=== PATIENT | female | born 1945 | race Caucasian/White ===

== ENCOUNTER 2016-11-23 16:37 | Emergency (ER) | payer MEDICARE, OTHER ==
[2016-11-23 15:37] LABS: BASOPHIL% 0.3 % (0-2.5); EOSINOPHIL% 0.6 % (0.0-7.0); HEMATOCRIT 45.7 % (35.0-45.0); HEMOGLOBIN 15.1 gm/dL (12.0-16.0); LYMPHOCYTE# 1.5 X10e3 (1.0-3.5); MEAN CORPUSCULAR HEMOGLOBIN 31.3 PG (28-34); MEAN PLATELET VOLUME 7.8 FL (6.5-11.5); MONOCYTE# 0.6 X10e3 (0-1.0); MONOCYTE% 7.9 % (3.0-12.0); NEUTROPHIL# 5.7 X10e3 (1.5-7.1); NEUTROPHIL% 72.2 % (40-75); PLATELET COUNT 210 X10e3 (140-420); RED BLOOD COUNT 4.82 X10e (3.90-5.30); WHITE BLOOD COUNT 7.8 X10e3 (4.0-10.5)
[2016-11-23 15:39] LABS: DIFF IND NO
[2016-11-23 16:12] LABS: CREATININE SERUM 0.5 mg/dL (0.6-1.4); GLOM FILT RATE Estimated 98.1 mL/min (>60)
[2016-11-23 16:29] LABS: URINE SOURCE CLEAN CATCH
[2016-11-23 16:34] LABS: URINE APPEARANCE CLEAR; URINE BILIRUBIN NEG (NEG); URINE BLOOD NEG (NEG); URINE COLOR YELLOW; URINE GLUCOSE NEG (NEG); URINE KETONE NEG (NEG); URINE LEUKOCYTE ESTERASE TRACE (NEG); URINE NITRATE NEG (NEG); URINE PH 6.5 (5-8); URINE PROTEIN NEG (NEG); URINE SPECIFIC GRAVITY 1.017 (1.003-1.035); URINE UROBILINOGEN 0.2 MG/DL (NEG)
[2016-11-23 16:36] LABS: URBCS1 AUWI 0-2 /[HPF] (0-2); URINE BACTERIA AUWI NEG (NEGATIVE); URINE SQUAMOUS EPITHELIAL CELL NONE SEEN /[HPF]
[~2016-11-23 16:37] MED LIST: ALLERCLEAR10 MG GT; CALCIUM CITRATE+D; CALCIUM CITRATE1 T15 GT; CENTRUM GT; CITRACAL200 MG; CLONAZEPAM0.5 MG GT; DIAZEPAM5 MG/5 M1 RC; DULCOLAX10 MG/SUPP RC; GENTLE LAXATIVE10 MG RC; GOLYTELY SOLU4000 ML PO; KEPPRA; KEPPRA500 M1 DOB; KEPPRA750 M1 GT; KLONOPIN GT; LACTULOSE10 G/15 M1 PO; LACTULOSE10 G/15 M2 GT; LACTULOSE10 G/15 ML PEG; LAMICTAL PEG; LAMICTAL PO; LAMICTAL150 MG GT; LAMICTAL25 M1 DOB; METHENAMINE HIPP1 GM PO; MIACALCIN4 ML; MILK OF MAGNESIA GT; MIRALAX255 GM PEG; MIRALAX255 GM PO; MULTI-VITAMIN W1 TA1 PO; MYLICON40 MG/0.1; MYLICON40 MG/0.6 GT; OMEPRAZOLE20 M2 PO; PREMARIN0.625 MG PO; PRILOSEC20 M1 GT; PROBIOTIC1 EACH PO; SENNA CONCENTR8.6 MG GT; SENNA8.8 MG/5 M PO; TOPAMAX; TOPAMAX25 MG DOB; TOPIRAMATE200 M1 GT; TYLENOL325 M1 GT; VIMPAT200 MG DOB; VIMPAT200 MG GT; VITAMIN D 4001 UDTAB GT; VITAMIN D1000 UNI1 GT; VITAMIN D1000 UNIT PO; ZANTAC GT; [UNRECOGNIZED DRUG - REMARK]
[2016-11-23 16:38] LABS: CULTURE INDICATED? NO
[2017-03-11] MEDS ORDERED: DANTRIUM25 MG FT (18:05)
[2017-03-11] MEDS ORDERED: HEARTBURN150 MG GT (18:08)
[2017-03-11] MEDS ORDERED: METOPROLOL TAR25 MG GT (18:08)
[2017-03-11] MEDS ORDERED: RISA-BID CAPLE1 EAC1 GT (18:09)
[2017-03-11] MEDS ORDERED: VIMPAT200 MG GT (18:10)
[2017-03-11] MEDS ORDERED: ARTIFICIAL TEAR15 M9 OU (18:11)
[2017-03-11] MEDS ORDERED: SALINE NOSE SPR45 M1 (18:11)
[2017-03-11] MEDS ORDERED: FLONASE SENSIM9.9 ML (18:13)
== END 2016-11-23 19:29 ==
LOC: CED 16:37
PROVIDERS: Emergency Medicine
DX: G40.909 Epilepsy, unspecified, not intractable, without status epilepticus (principal); Z79.899 Other long term (current) drug therapy; Z88.1 Allergy status to other antibiotic agents; Z88.8 Allergy status to other drugs, medicaments and biological substances
CPT/HCPCS: 80048; 81003; 82947; 85025; 99284

== ENCOUNTER 2017-01-17 12:36 | Emergency (ER) | payer MEDICARE, OTHER ==
--- NOTE | ~2017-01-17 | EKG ---
PATIENT: ESTELLA BROWN UNIT #: [id number] Ventricular Rate: 64 BPM Atrial Rate: 64 BPM P-R Interval: 190 ms QRS Duration: 76 ms Q-T Interval: 414 ms QTC Calculation(Bezet): 427 ms P [place]: 76 degrees Calculated R [place]: 58 degrees Calculated T [place]: 46 degrees Diagnosis Line: Normal sinus rhythm Diagnosis Line: Normal ECG Diagnosis Line: When compared with ECG of 16-DEC-2015 20:49, Diagnosis Line: No significant change was found Diagnosis Line: Confirmed by ANIBAL LOZANO MD ([id number]) on Diagnosis Line: 01/17/2017 7:16:44 PM INTERPRETING MD: SETH
--- NOTE | ~2017-01-17 | CR72 ---
[facility] A Service of [facility] & [facility] RADIOLOGY TEXT RESULTS PATIENT: ESTELLA BROWN LOCATION: [facility] : 47 UNIT #: [id number] AGE: [address]: Giovanni Casas MD SEX: F ORDER DR: [id number] [facility] [address] [place], [place] [address] [id number] MR#: [id number] Acc #: [id number] NAME: ESTELLA BROWN : 1945 SEX: F STUDY DATE/TIME: 01/17/2017 13:16 UNIT: JANELLE ROOM: STUDY DESCRIPTION: CR Chest Single View Portable Ordering Physician: [facility] Primary Care Physician: Erick Ayala Sr., M.D. MEDICAL IMAGING REPORT This report is preliminary unless electronic signature is present EXAM Portable chest HISTORY Shortness of air today. FINDINGS The cardiac size and pulmonary vascularity are within normal limits allowing for shallow inspiration. No airspace infiltrates or effusions are identified. Mild right lower thoracic curve. Mild gaseous distension of the partly visualized colon in the upper abdomen could be due to mild ileus. IMPRESSION No acute findings in the chest. Low lung volumes. Dictated by... Buddy Barker M.D. THIS IS AN ELECTRONICALLY VERIFIED REPORT Buddy Barker M.D. at 01/17/2017 10:13 PM DFL/pcl TD: 01/17/2017 16:25 JOB #: [id number] MEDICAL IMAGING REPORT Page 1 of 1 COPY
[2017-01-17 13:41] LABS: URINE SOURCE CLEAN CATCH
[2017-01-17 13:51] LABS: URINE APPEARANCE CLEAR; URINE BILIRUBIN NEG (NEG); URINE BLOOD NEG (NEG); URINE COLOR DK YELLOW; URINE GLUCOSE NEG (NEG); URINE KETONE NEG (NEG); URINE LEUKOCYTE ESTERASE TRACE (NEG); URINE NITRATE NEG (NEG); URINE PROTEIN NEG (NEG); URINE UROBILINOGEN 0.2 MG/DL (NEG)
[2017-01-17 13:51] LABS: BASOPHIL% 0.1 % (0-2.5); EOSINOPHIL# 0.1 X10e3 (0-0.7); EOSINOPHIL% 0.6 % (0.0-7.0); HEMATOCRIT 38.7 % (35.0-45.0); HEMOGLOBIN 12.6 gm/dL (12.0-16.0); LYMPHOCYTE# 0.8 X10e3 (1.0-3.5); LYMPHOCYTE% 7.9 % (17.0-45.0); MEAN CELL VOLUME 95.2 FL (83-96); MEAN CORPUSCULAR HGB CONC 32.5 g/dL (30-36); MEAN PLATELET VOLUME 7.5 FL (6.5-11.5); MONOCYTE# 0.6 X10e3 (0-1.0); MONOCYTE% 6.2 % (3.0-12.0); NEUTROPHIL# 8.4 X10e3 (1.5-7.1); NEUTROPHIL% 85.2 % (40-75); PLATELET COUNT 217 X10e3 (140-420); RED BLOOD COUNT 4.07 X10e (3.90-5.30); WHITE BLOOD COUNT 9.9 X10e3 (4.0-10.5)
[2017-01-17 13:52] LABS: POC - CKMB 2.9 ng/mL (0.0-7.9); POC - TROPONIN <0.05 ng/mL (<=0.05)
[2017-01-17 13:55] LABS: CULTURE INDICATED? YES; URBCS1 AUWI 0-2 /[HPF] (0-2); URINE BACTERIA AUWI 2+ (NEGATIVE); URINE SQUAMOUS EPITHELIAL CELL NONE SEEN /[HPF]
[2017-01-17 14:05] LABS: DIFF IND NO
[2017-01-17 14:18] LABS: BUN/CREATININE RATIO 46.66; CALCIUM SERUM 8.4 mg/dL (8.4-10.2); CREATININE SERUM 0.3 mg/dL (0.6-1.4); GLOM FILT RATE Estimated 116.1 mL/min (>60); POTASSIUM 3.3 mmol/L (3.5-5.1)
[2017-03-11] MEDS ORDERED: DANTRIUM25 MG FT (18:05)
[2017-03-11] MEDS ORDERED: HEARTBURN150 MG GT (18:08)
[2017-03-11] MEDS ORDERED: METOPROLOL TAR25 MG GT (18:08)
[2017-03-11] MEDS ORDERED: RISA-BID CAPLE1 EAC1 GT (18:09)
[2017-03-11] MEDS ORDERED: VIMPAT200 MG GT (18:10)
[2017-03-11] MEDS ORDERED: ARTIFICIAL TEAR15 M9 OU (18:11)
[2017-03-11] MEDS ORDERED: SALINE NOSE SPR45 M1 (18:11)
[2017-03-11] MEDS ORDERED: FLONASE SENSIM9.9 ML (18:13)
== END 2017-01-17 19:10 | disposition home or self-care (01) ==
LOC: CED 12:36
PROVIDERS: Emergency Medicine
DX: R06.02 Shortness of breath (principal); G40.909 Epilepsy, unspecified, not intractable, without status epilepticus; Z90.49 Acquired absence of other specified parts of digestive tract; Z88.1 Allergy status to other antibiotic agents; Z88.8 Allergy status to other drugs, medicaments and biological substances; Z79.899 Other long term (current) drug therapy
CPT/HCPCS: 36415; 71010; 80048; 81003; 82553; 83880; 84484; 85025; 87040; 87086; 93005; 99285

== ENCOUNTER → 2017-02-09 | Outpatient (CLI) | payer MEDICARE, OTHER ==
[~2017-02-09] MED LIST changes: +ARTIFICIAL TEAR15 M9 OU; +DANTRIUM25 MG FT; +DELTASONE20 MG GT; +DIASTAT2.5 MG PR; +DULCOLAX10 MG PR; +EUCERIN CREME454 GM TOP; +FLONASE SENSIM9.9 ML; +HEARTBURN150 MG GT; +METOPROLOL TAR25 MG GT; +RISA-BID CAPLE1 EAC1 GT; +SALINE NOSE SPR45 M1
--- NOTE | ~2017-02-09 | US49 ---
[facility] A Service of [facility] & [facility] RADIOLOGY TEXT RESULTS PATIENT: ESTELLA BROWN LOCATION: [facility] : 46 UNIT #: [id number] AGE: [address]: Erick Ayala MD SEX: F ORDER DR: [id number] [facility] [address] [place], [place] [address] [id number] O MR#: [id number] Acc #: [id number] NAME: ESTELLA BROWN : 1945 SEX: F STUDY DATE/TIME: 02/09/2017 13:53 UNIT: [facility] ROOM: STUDY DESCRIPTION: US Extremity Non Vasc Complete Attending Physician: Erick Ayala Sr., M.D. Referring Physician: Erick Ayala Sr., M.D. Ordering Physician: Erick Ayala Sr., M.D. Primary Care Physician: Erick Ayala Sr., M.D. MEDICAL IMAGING REPORT This report is preliminary unless electronic signature is present EXAM Ultrasound examination of the right posterior knee HISTORY Large knot behind the right knee for the past month. TECHNIQUE Ultrasound evaluation was performed with bender-scale and color-flow imaging. FINDINGS The palpable abnormality represents a popliteal cyst that is unilocular. It measures 2.9 x 1.5 x 1.9 cm. It contains some internal echoes likely representing debris. No additional masses are seen. No vascular abnormalities are seen crossing the joint. IMPRESSION Posterior knee cyst as measured above. Dictated by... Devon Moreno M.D. THIS IS AN ELECTRONICALLY VERIFIED REPORT Devon Moreno M.D. at 02/10/2017 4:42 PM JACKLYN/gorge TD: 02/10/2017 13:11 JOB #: [id number] MEDICAL IMAGING REPORT Page 1 of 1 COPY
== END | disposition home or self-care (01) ==
LOC: CGUS 12:56
DX: M25.861 Other specified joint disorders, right knee (principal)
CPT/HCPCS: 76881

== ENCOUNTER 2017-03-08 00:37 | Emergency (ER) | payer MEDICARE, OTHER ==
[~2017-03-08] VITALS: Ht 152.4 cm; Wt 60.0 kg
--- NOTE | ~2017-03-08 | EKG ---
PATIENT: ESTELLA BROWN UNIT #: [id number] Ventricular Rate: 84 BPM Atrial Rate: 84 BPM P-R Interval: 174 ms QRS Duration: 74 ms Q-T Interval: 346 ms QTC Calculation(Bezet): 408 ms P [place]: 76 degrees Calculated R [place]: 63 degrees Calculated T [place]: 67 degrees Diagnosis Line: Normal sinus rhythm Diagnosis Line: Normal ECG Diagnosis Line: When compared with ECG of 17-JAN-2017 13:02, Diagnosis Line: No significant change was found Diagnosis Line: Confirmed by ESTELLE ELMORE MD ([id number]) on 03/09/2017 Diagnosis Line: 11:32:32 PM INTERPRETING MD: CATARINA MURILLO
--- NOTE | ~2017-03-08 | CR72 ---
[facility] A Service of [facility] RADIOLOGY TEXT RESULTS PATIENT: ESTELLA BROWN LOCATION: [facility] : 46 UNIT #: [id number] AGE: [address]: Giovanni Casas MD SEX: F ORDER DR: [id number] [facility] [address] [place], [place] [address] [id number] E MR#: [id number] Acc #: [id number] NAME: ESTELLA BROWN. : 1945 SEX: F STUDY DATE/TIME: 03/08/2017 1:46 UNIT: [facility] ROOM: STUDY DESCRIPTION: CR Chest Single View Portable Attending Physician: Giovanni Casas Ordering Physician: Naif Casas M.D. Primary Care Physician: Lianna Groves MEDICAL IMAGING REPORT This report is preliminary unless electronic signature is present EXAM Chest x-ray, HISTORY 71-year-old female in the ED with new onset shortness of air today. TECHNIQUE AP portable chest x-ray. FINDINGS Chronically low lung volumes with bibasilar atelectasis. Colon extends beneath the left hemidiaphragm. Gastrostomy tube. Lungs appear clear. No visible pulmonary infiltrate or pleural effusion. Heart size and pulmonary vascularity are within normal limits. No change since 01/17/2017. IMPRESSION No active disease. No change since 01/17/2017. Dictated by... Antony Bernal M.D. THIS IS AN ELECTRONICALLY VERIFIED REPORT Antony Bernal M.D. at 03/08/2017 6:08 AM PATRIICA/lucia TD: 03/08/2017 02:37 JOB #: [id number] MEDICAL IMAGING REPORT [facility] A Service of [facility] RADIOLOGY TEXT RESULTS PATIENT: ESTELLA BROWN LOCATION: [facility] : 47 UNIT #: [id number] AGE: [address]: Giovanni Casas MD SEX: F ORDER DR: Page 1 of 1 COPY
[~2017-03-08 00:37] MED LIST changes: -ARTIFICIAL TEAR15 M9 OU; -DANTRIUM25 MG FT; -DELTASONE20 MG GT; -DIASTAT2.5 MG PR; -DULCOLAX10 MG PR; -EUCERIN CREME454 GM TOP; -FLONASE SENSIM9.9 ML; -HEARTBURN150 MG GT; -METOPROLOL TAR25 MG GT; -RISA-BID CAPLE1 EAC1 GT; -SALINE NOSE SPR45 M1
[2017-03-08 03:36] LABS: BASOPHIL% 0.1 % (0-2.5); DIFF IND NO; EOSINOPHIL% 0.6 % (0.0-7.0); HEMOGLOBIN 13.6 gm/dL (12.0-16.0); LYMPHOCYTE# 0.9 X10e3 (1.0-3.5); LYMPHOCYTE% 13.4 % (17.0-45.0); MEAN CELL VOLUME 96.6 FL (83-96); MEAN CORPUSCULAR HEMOGLOBIN 32.8 PG (28-34); MEAN CORPUSCULAR HGB CONC 33.9 g/dL (30-36); MEAN PLATELET VOLUME 7.3 FL (6.5-11.5); MONOCYTE# 0.5 X10e3 (0-1.0); MONOCYTE% 7.4 % (3.0-12.0); NEUTROPHIL# 5.3 X10e3 (1.5-7.1); NEUTROPHIL% 78.5 % (40-75); PLATELET COUNT 186 X10e3 (140-420); RED BLOOD COUNT 4.14 X10e (3.90-5.30); WHITE BLOOD COUNT 6.7 X10e3 (4.0-10.5)
[2017-03-08 03:45] LABS: POC - CKMB 1.6 ng/mL (0.0-7.9); POC - TROPONIN <0.05 ng/mL (<=0.05)
[2017-03-08 03:54] LABS: ALBUMIN SERUM 3.9 g/dL (3.5-5.0); BILIRUBIN, DIRECT 0.1 mg/dL (0.0-0.2); BILIRUBIN,INDIRECT 0.2 mg/dL (0.0-0.9); BILIRUBIN,TOTAL 0.3 mg/dL (0.2-2.0); BUN/CREATININE RATIO 63.33; CALCIUM SERUM 10.6 mg/dL (8.4-10.2); CREATININE SERUM 0.3 mg/dL (0.6-1.4); GLOM FILT RATE Estimated 116.1 mL/min (>60); POTASSIUM 3.6 mmol/L (3.5-5.1); PROTEIN TOTAL SERUM 6.8 g/dL (6.0-8.3)
[2017-03-11] MEDS ORDERED: DANTRIUM25 MG FT (18:05)
[2017-03-11] MEDS ORDERED: METOPROLOL TAR25 MG GT (18:08)
[2017-03-11] MEDS ORDERED: HEARTBURN150 MG GT (18:08)
[2017-03-11] MEDS ORDERED: RISA-BID CAPLE1 EAC1 GT (18:09)
[2017-03-11] MEDS ORDERED: VIMPAT200 MG GT (18:10)
[2017-03-11] MEDS ORDERED: ARTIFICIAL TEAR15 M9 OU (18:11)
[2017-03-11] MEDS ORDERED: SALINE NOSE SPR45 M1 (18:11)
[2017-03-11] MEDS ORDERED: FLONASE SENSIM9.9 ML (18:13)
== END 2017-03-08 04:55 | disposition home or self-care (01) ==
LOC: CED 00:37
PROVIDERS: Emergency Medicine
DX: R06.02 Shortness of breath (principal); G40.909 Epilepsy, unspecified, not intractable, without status epilepticus; K21.9 Gastro-esophageal reflux disease without esophagitis
CPT/HCPCS: 36415; 71010; 80048; 80076; 82553; 83880; 84484; 85025; 93005; 99284

== ENCOUNTER 2017-03-12 03:30 | Inpatient (IN) | payer MEDICARE, OTHER ==
[~2017-03-12] VITALS: Ht 152.4 cm; Wt 60.5 kg
--- NOTE | ~2017-03-12 | CR72 ---
[facility] A Service of [facility] & [facility] RADIOLOGY TEXT RESULTS PATIENT: ESTELLA BROWN LOCATION: [address] : [birth year] UNIT #: [id number] AGE: [address]: Jessie Farnsworth MD SEX: F ORDER DR: [id number] [facility] [address] [place], [place] [address] [id number] I MR#: [id number] Acc #: [id number] NAME: ESTELLA BROWN : 1945 SEX: F STUDY DATE/TIME: 03/12/2017 10:03 UNIT: [facility] ROOM: [facility] STUDY DESCRIPTION: CR Chest Single View Portable Attending Physician: Jessie Farnsworth M.D. Ordering Physician: Ed Doctor [id number] [facility] Primary Care Physician: Lianna Groves MEDICAL IMAGING REPORT This report is preliminary unless electronic signature is present EXAM Chest portable, 03/12/2017 10:03 hours HISTORY Shortness of air for 2 days. New line placement. COMPARISON 03/12/2017 04:30 hours FINDINGS Portable upright chest demonstrates the patient being rotated and leaning to the right. There is a new right IJ catheter with tip in the right atrium. If it is desired to have the tip in the SVC, I would suggest withdrawing the catheter 4.0 cm. The lung volumes are low with bibasilar atelectasis. There is increased density at the right lung base which could represent atelectasis, pneumonia and/or small effusions similar to the earlier film. IMPRESSION 1. Low lung volumes with bibasilar atelectasis. There is increased density laterally at the right base which could represent atelectasis, pneumonia and/or small pleural effusion. 2. Right IJ catheter tip is in the right atrium. If it is desired to have the tip in the SVC I would suggest withdrawing the catheter 4.0 cm. There is no pneumothorax. Dictated by... Mayte Todd M.D. THIS IS AN ELECTRONICALLY VERIFIED REPORT Mayte Todd M.D. at 03/13/2017 3:[address] [facility] A Service of [facility] & [facility] RADIOLOGY TEXT RESULTS PATIENT: ESTELLA BROWN [address] [birth year] UNIT #: [id number] AGE: [address]: Jessie Farnsworth MD SEX: F ORDER DR: TD: 03/12/2017 15:10 JOB #: [id number] MEDICAL IMAGING REPORT Page 1 of 1 COPY
--- NOTE | ~2017-03-12 | HP ---
Unit #: [id number] #: [id number] Patient: LADY BROWN [id number] [address] [address] [id number] I MR#: [id number] NAME: LADY BROWN ROOM: [facility] Age: 71 Sex: F Admission Date: 03/12/2017 : 1945 Attending Physician: Jessie Farnsworth M.D. Primary Care Physician: Lianna Groves HISTORY AND PHYSICAL CHIEF COMPLAINT Hypothermia and decreased saturation. HISTORY OF PRESENT ILLNESS Ms. Lady Brown is a 71-year-old female who is a resident of [facility]. She has a history of mental retardation, seizure disorder, dysphagia and was sent to [facility] emergency room because of hypothermia and also low saturations. The patient has been diagnosed with healthcare acquired pneumonia and acute respiratory failure. The patient is being admitted to the ICU room 9. The patient is not able to provide any history. Most of the history has been taken form the emergency room notes and from previous notes. PAST MEDICAL HISTORY 1. History of mental retardation. 2. History of seizure disorder. 3. Dysphagia, status post PEG placement. PAST SURGICAL HISTORY History of PEG placement. SOCIAL HISTORY The patient is a resident of [place]. FAMILY HISTORY Not known. ALLERGIES No known drug allergies. REVIEW OF SYSTEMS No obtainable at this time. PHYSICAL EXAMINATION GENERAL: The patient is being examined in the ICU, bed 9. VITALS: Blood pressure is 89/45, respiratory rate 27, pulse 64, temperature 93.6. HEENT: Head is normocephalic. The patient has BiPAP on at this time. CHEST: Decreased air entry bilaterally. Basal crackles are heard. HEART: Regular rhythm. ABDOMEN: Soft. EXTREMITIES: Trace edema. 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 Neurological examination has been very limited. Unit #: [id number] #: [id number] Patient: LADY BROWN DIAGNOSTIC STUDIES IMAGING: Chest x-ray done showed mild infiltrate right lung base. LABORATORY: White blood cell count 11.6, hemoglobin 13.0, hematocrit 39.3, platelets 232. Troponin less than 0.05. Lactic acid 0.9. Sodium 140, potassium 3.2, chloride 47, BUN 15, creatinine 0.5, BNP 235. ASSESSMENT The patient is being admitted to the ICU with 1. Sepsis. 2. Acute hypoxic/hypercarbic respiratory failure. 3. Healthcare facility acquired pneumonia. 4. Hypokalemia. 5. Seizure disorder. 6. Dysphagia with a history of PEG in place. PLAN Admit to the ICU. Test Center Administrator has been consulted. The patient has been started on BiPAP. Warming blanket has been started for hypothermia. IV antibiotics broad spectrum is being started, which includes Zosyn, (1) and vancomycin. IV Protonix 40 mg daily and Lovenox 40 mg subcutaneous daily for DVT prevention. Echocardiogram is being ordered. Urinalysis and culture will be done. Blood culture has been ordered. Please refer to progress note for further orders. Medication reconciliation has been done. Dictated by Elyssa Fishman TD: 03/12/2017 14:53 JOB #: [id number] HISTORY AND PHYSICAL Page 1 of 1 X Jessie Farnsworth MD X HISTORY AND PHYSICAL
--- NOTE | ~2017-03-12 | CR72 ---
[facility] A Service of [facility] & [facility] RADIOLOGY TEXT RESULTS PATIENT: ESTELLA BROWN LOCATION: [address] : [birth year] UNIT #: [id number] AGE: [address]: Jessie Farnsworth MD SEX: F ORDER DR: [id number] [facility] [address] [place], [place] [address] [id number] I MR#: [id number] Acc #: [id number] NAME: ESTELLA BROWN : 1945 SEX: F STUDY DATE/TIME: 03/12/2017 4:30 UNIT: [facility] ROOM: [facility] STUDY DESCRIPTION: CR Chest Single View Portable Attending Physician: Jessie Farnsworth M.D. Ordering Physician: Oscar Orozco M.D. Primary Care Physician: Lianna Groves MEDICAL IMAGING REPORT This report is preliminary unless electronic signature is present EXAM Chest x-ray, 03/12/2017. HISTORY 71-year-old female hospital inpatient with shortness of air, hypoxia. TECHNIQUE AP portable chest x-ray. FINDINGS Mild patchy infiltrate is present at the right lung base partially obscuring the right hemidiaphragm. This is new since yesterday. Shallow lung expansion with mild bibasilar atelectasis, unchanged. Upper lungs clear. Cardiomegaly is stable. No visible pleural effusion. IMPRESSION Mild infiltrate, right lung base, newly visible since yesterday. Dictated by... Antony Bernal M.D. THIS IS AN ELECTRONICALLY VERIFIED REPORT Antony Bernal M.D. at 03/12/2017 5:07 PM NIGELW/chiquita TD: 03/12/2017 10:15 JOB #: [id number] MEDICAL IMAGING REPORT Page 1 of 1 COPY
--- NOTE | ~2017-03-12 | CR72 ---
[facility] A Service of [facility] & [facility] RADIOLOGY TEXT RESULTS PATIENT: ESTELLA BROWN LOCATION: [place] [address] : 47 UNIT #: [id number] AGE: [address]: Jessie Farnsworth MD SEX: F ORDER DR: [id number] [facility] [address] [place], [place] [address] [id number] I MR#: [id number] Acc #: [id number] NAME: ESTELLA BROWN : 1945 SEX: F STUDY DATE/TIME: 03/13/2017 04:30 UNIT: [facility] ROOM: [facility] STUDY DESCRIPTION: CR Chest Single View Portable Attending Physician: Jessie Farnsworth M.D. Ordering Physician: Jessie Farnsworth M.D. Primary Care Physician: Lianna Groves MEDICAL IMAGING REPORT This report is preliminary unless electronic signature is present EXAM Portable chest 03/13/18 at 04:30 INDICATIONS Shortness of air, weakness for 3 days. FINDINGS AP portable chest compared with 03/12/2017. Right IJ line cavoatrial junction. There is continued infiltrate or atelectasis in both bases and there are there are small bilateral effusions. No pneumothorax. Dictated by... Devon Aguirre Jr., M.D. THIS IS AN ELECTRONICALLY VERIFIED REPORT Devon Aguirre Jr., M.D. at 03/14/2017 4:57 AM SADIA/mali TD: 03/13/2017 23:49 JOB #: [id number] MEDICAL IMAGING REPORT Page 1 of 1 COPY
--- NOTE | ~2017-03-12 | CR72 ---
[facility] A Service of [facility] & [facility] RADIOLOGY TEXT RESULTS PATIENT: ESTELLA BROWN LOCATION: [address] : [birth year] UNIT #: [id number] AGE: [address]: Jessie Farnsworth MD SEX: F ORDER DR: [id number] [facility] [address] [place], [place] [address] [id number] I MR#: [id number] Acc #: [id number] NAME: ESTELLA BROWN. : 1945 SEX: F STUDY DATE/TIME: 03/15/2017 5:50 UNIT: [facility] ROOM: [facility] STUDY DESCRIPTION: CR Chest Single View Portable Attending Physician: Jessie Farnsworth M.D. Ordering Physician: Long Servin M.D. Primary Care Physician: Lianna Groves MEDICAL IMAGING REPORT This report is preliminary unless electronic signature is present EXAM Portable AP view of the chest COMPARISON March 14, 2017, March 13, 2017, March 12, 2017. INDICATION 71-year-old female inpatient with respiratory failure and hypothermia since March 12, 2017. History of COPD. Dyspnea for 3 days. FINDINGS/IMPRESSION Calcium densities seen over the left lower chest/left upper abdomen, favored to be calcified granulomas. Right internal jugular catheter is terminating in the high right atrium. Consider retraction. This is grossly stable. There is likely a persistent small right pleural effusion with associated right basilar atelectasis or possibly pneumonia. There is increasing left basilar atelectasis or pneumonia, possibly with increasing left pleural effusion. No evidence of pneumothorax. Cardiomediastinal silhouette is within normal limits. Surgical clips in the right upper quadrant of the abdomen, stable. There is a stable large calcium density inferior to the right glenohumeral joint, possibly representing a large osteochondroma. Multilevel degenerative changes of the cervical spine bilaterally. Thoracolumbar scoliosis. Dictated by... Thong Gonzales M.D. THIS IS AN ELECTRONICALLY VERIFIED REPORT Thong Gonzales M.D. at 03/18/2017 11:07 PM PENNY/gorge [facility] A Service of [facility] & [facility] RADIOLOGY TEXT RESULTS PATIENT: ESTELLA BROWN [address] [birth year] UNIT #: [id number] AGE: [address]: Jessie Farnsworth MD SEX: F ORDER DR: TD: 03/15/2017 08:55 JOB #: [id number] MEDICAL IMAGING REPORT Page 1 of 1 COPY
--- NOTE | ~2017-03-12 | CR72 ---
[facility] A Service of [facility] & [facility] RADIOLOGY TEXT RESULTS PATIENT: ESTELLA BROWN LOCATION: [address] : [birth year] UNIT #: [id number] AGE: [address]: Jessie Farnsworth MD SEX: F ORDER DR: [id number] [facility] [address] [place], [place] [address] [id number] I MR#: [id number] Acc #: [id number] NAME: ESTELLA BROWN : 1945 SEX: F STUDY DATE/TIME: 03/15/2017 11:56 UNIT: [facility] ROOM: [facility] STUDY DESCRIPTION: CR Chest Single View Portable Attending Physician: Jessie Farnsworth M.D. Ordering Physician: Omari Payton M.D. Primary Care Physician: Lianna Groves MEDICAL IMAGING REPORT This report is preliminary unless electronic signature is present EXAM Frontal chest 03/15/2017 INDICATIONS Status post thoracentesis on the right today. Shortness of air. Symptoms began today. TECHNIQUE/COMPARISON Frontal chest compared with 03/15/2017, 0550 hours FINDINGS Right-sided central line is unchanged. Lung volumes remain low. Interval decrease in pleural volume on the right. Persistent atelectasis or infiltrate in the lung bases bilaterally. There is no pneumothorax. Small left effusion. Granulomatous calcifications in the spleen. Degenerative change right shoulder. IMPRESSION Decrease in volume of right-sided pleural fluid. Persistent bibasilar atelectasis or infiltrates. No pneumothorax. Dictated by... Gene Youngblood M.D. THIS IS AN ELECTRONICALLY VERIFIED REPORT Gene Youngblood M.D. at 03/15/2017 4:33 PM BRUNILDAY/constance TD: 03/15/2017 15:26 JOB #: [id number] MEDICAL IMAGING REPORT Page 1 of 1 COPY
--- NOTE | ~2017-03-12 | FU ---
[facility] Nutrition Therapy DATE: 03/16/17 Patient: ESTELLA BROWN Physician: CHAITANYA Address: [facility] Room/Bed: [address], Zip: [place] [address] Admit Date: 03/12/17 Date of : 47 Height: 5 0 Weight: 125 57 NUTRITION MONITORING/FOLLOW-UP: Reason: Nutrition follow-up Admitting dx: 71 y/o female admitted from [facility] with SOA, PNA Anthropometrics: Ht: 60", admission wt: 104 lbs, current wt: 125 lbs (57 kg) Weights ranged from 104-130 lbs since admission, pt appears more towards 125-130 lbs BMI: 24.4 (normal; based on current weight) Labs: Reviewed Meds: Reviewed GI: + BM's per nursing Estimated Nutrition Needs: See initial RD assessment dated 03/12/17 Assessment: Chart reviewed, events noted. Pt remains on Bipap and has been NPO x 4 days, she is receiving meds via PEG. No plans to start enteral nutrition at this time as the patient's family is leaning towards comfort measures/withdrawing care. Pt is a DNR. See RD recs below. Dx: Inadequate oral intake r/t dyaphagia, PMH AEB PEG for alternative nutrition support, NPO x 4 days - ACTIVE Intervention: None appropriate at this time, EN recs in chart from initial assessment if needed Monitoring, Evaluation and Goals: Nutrition goals not met/may no longer be relevant Recommendations: 1. No plans for EN at this time. If pt improves and EN becomes appropriate/desired start feeds Jevity 1.5 @ 20 ml/hr and increase by 10 ml q 8 hours until goal rate of 40 ml/hr is reached to meet 100% of estimated nutritional needs. 2. Please consult RD with any further nutritional needs. [facility] Nutrition Therapy DATE: 03/16/17 Patient: ESTELLA BROWN Physician: CHAITANYA Address: [facility] Room/Bed: [address], Zip: [place] [address] Admit Date: 03/12/17 Date of : [birth year] Height: 5 0 Weight: 125 57 Respectfully, Megan Philippe RD, LD [facility] cc: client file
--- NOTE | ~2017-03-12 | OR ---
Unit #: [id number] #: [id number] Patient: ESTELLA BROWN [id number] [address] [address] [id number] I MR#: [id number] NAME: ESTELLA BROWN ROOM: [facility] Date of Procedure: 03/15/2017 Admission Date: 03/12/2017 Surgeon: Drew Payton M.D. : 1945 Attending Physician: Jessie Farnsworth M.D. Primary Care Physician: Lianna Groves PROCEDURE OPERATIVE NOTE PREOPERATIVE DIAGNOSIS Respiratory failure and right sided pleural effusion. POSTOPERATIVE DIAGNOSIS Right sided pleural effusion. FINDINGS 700 mL of hazy orange colored effusion. PREOP MEDICATION Lidocaine topical. PERFORMING PHYSICIAN Dr. Drew Payton COMPLICATIONS None. DESCRIPTION OF THE PROCEDURE An informed consent was obtained from the patient's family after explaining the benefit and risk of this procedure. The patient was prepped and positioned in proper way and then she was sat up with the nurse's assistance. The patient was kept on BiPAP throughout the procedure. A needle was inserted in the fifth intercostal space under ultrasound guidance with no complication. Needle was inserted and fluid flow was obtained. Then, a catheter was threaded over the needle and the needle was removed. The catheter was hooked to a vacuum bottle and almost 700 mL of fluid was obtained. The catheter was removed then and dressing was applied. A stat chest x-ray was ordered to rule out any postop pneumothorax. Dictated by... Drew Payton M.D. EA/ryan TD: 03/15/2017 12:33 Unit #: [id number] #: [id number] Patient: ESTELLA BROWN JOB #: [id number] PROCEDURE OPERATIVE NOTE Page 1 of 1 X DREW CORONA MD X PROCEDURE OPERATIVE NOTE
--- NOTE | ~2017-03-12 | OR ---
Unit #: [id number] #: [id number] Patient: ESTELLA BROWN [id number] [address] [address] [id number] I MR#: [id number] NAME: ESTELLA BROWN ROOM: [facility] Date of Procedure: 03/15/2017 Admission Date: 03/12/2017 Surgeon: Drew Payton M.D. : 1945 Attending Physician: Jessie Farnsworth M.D. Primary Care Physician: Lianna Groves PROCEDURE OPERATIVE NOTE PREOPERATIVE DIAGNOSIS Respiratory failure and right-sided pleural effusion. POSTOPERATIVE DIAGNOSIS Right-sided pleural effusion. PROCEDURE PERFORMED Diagnostic and therapeutic thoracentesis under ultrasound guidance. COMPLICATIONS None. FINDINGS 700 cc of orange colored hazy fluid. ANESTHESIA Lidocaine topical. PROCEDURE An informed consent was obtained from the patient after explaining the benefits and risks of this procedure. The patient was prepped and positioned in the appropriate way, then cleaned with chlorhexidine. Then with ultrasound guidance, a needle was inserted in the fifth intercostal space until fluid flow was obtained. The catheter was threaded over the needle and the needle was removed. The catheter was hooked to a vacuum bottle and 700 cc of fluid was obtained. The catheter was removed then and a clean dressing was applied. The STAT chest x-ray postoperative confirmed no pneumothorax. The patient tolerated her procedure well with no immediate complications. Dictated by... Elyssa Granger TD: 03/15/2017 13:27 JOB #: [id number] Unit #: [id number] #: [id number] Patient: ESTELLA BROWN PROCEDURE OPERATIVE NOTE Page 1 of 1 X DREW CORONA MD PROCEDURE OPERATIVE NOTE
--- NOTE | ~2017-03-12 | A ---
[facility] Nutrition Therapy DATE: 03/12/17 Patient: ESTELLA Bermudez KEVIN Physician: CHAITANYA Address: [facility] Room/Bed: [address], Zip: [place] [address] Admit Date: 03/12/17 Date of : [birth year] Height: 5 0 Weight: 104 47.5 NUTRITIONAL ASSESSMENT: REASON: NPO IN ICU ASSESSMENT + 2 NUTRITION RISK PT RE: HOME TFs PT IS 71 Y.O. FEMALE ADMITTED FOR SOA PMH: NO RECENT H&P IN [facility]. PER CHART/PAST NOTES: DYSPHAGIA S/P PEG PLACEMENT, MENTAL RETARDATION, SEIZURE DISORDER, BLINDESS, HLD Anthropometrics: 60.75 INCHES PER [place] NOTES, WT: 104# (47 KG), BMI: 20.3 Labs: GLU: 166, K+:3.2, CREAT: 0.5, CA+: 10.3 Meds: NACL, LEVOPHED I/O & Bowel function: NOT AVAILABLE AT THIS TIME Skin Integrity: NO KNOWN SKIN ISSUES Estimated Nutrition Needs: [id number] KCAL (25-30 KCAL/KG) 47-61 G PRO (1.0-1.3 G PRO/ KG BW) FLUIDS CONSISTENT W/KCAL NEEDS Assessment: CHART REVIEWED AND EVENTS NOTED. PT SEEN FOR NPO IN ICU ASSESSMENT + 2 NUTRITION RISK PT RE: HOME ENTERAL NUTRITION. PT ASLEEP AT TIME OF VISIT. PT ADMITTED FOR ABOVE DX AND FROM [place]. NO CURRENT PLANS IN PLACE TO BEGIN ALTERNATIVE NUTRITION SUPPORT AT THIS TIME. PER [place] NOTES, PT CONSUMES MECHANICAL GROUND DIET + THIN LIQUIDS AT [place], HAS PEG FOR SUPPLEMENTAL NUTRITION. IF PT CONSUMES <50% OF MEALS, BOLUS JEVITY 1.5 1 CAN (240 ML). NO FAMILY IN ROOM AT TIME OF VISIT. RD TO FOLLOW. SEE RECOMMENDATIONS BELOW. Dx: INADEQUATE ORAL INTAKE R/T DYSPHAGIA, PMH AEB PEG TUBE IN PLACE, SUPPLEMENTAL NUTRITION IN PLACE. Intervention: 1. NPO Monitoring, Evaluation and Goals: 1. ENTERAL NUTRITION; ONCE INITIATED, PROVIDE >80% TOTAL GOAL VOLUME X 24 HOURS 2. WEIGHTS; PROMOTE HEALTHY WEIGHT MAINTENANCE 3. 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 Recommendations: 1. IF PT REMAINS NPO >24 HOURS, RECOMMEND TO BEGIN ALTERNATIVE NUTRITION SUPPORT OF JEVITY 1.5 @ 20 ML/HR, ADVANCE 10 ML q 4 HOURS TO GOAL RATE OF 40 ML/HR -PROVIDES 1440 KCAL, 61 G PRO, 730 ML FREE H20 ADD FREE H20 FLUSHES OF 220 ML TID TO MEET PT'S CURRENT ESTIMATED FLUID NEEDS OR MANAGE PER MD 2. 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 OF NOTE, PT RECEIVES MECHANICAL GROUND DIET + THIN LIQUIDS AT [place] 3. REPLETE LYTES NEEDED- K+ LOW RD WILL F/U PER PROTOCOL PT IS MODERATELY COMPROMISED Respectfully, FRANCE BUCK MS, RD, LD Food and Nutritional Services [facility] cc: client file
--- NOTE | ~2017-03-12 | CT4 ---
[facility] A Service of [facility] RADIOLOGY TEXT RESULTS PATIENT: ESTELLA BROWN LOCATION: [address] : [birth year] UNIT #: [id number] AGE: [address]: Jessie Farnsworth MD SEX: F ORDER DR: [id number] [facility] [address] [place], [place] [address] [id number] MR#: [id number] Acc #: [id number] NAME: ESTELLA BROWN. : 1945 SEX: F STUDY DATE/TIME: 03/13/2017 13:35 UNIT: [facility] ROOM: [facility] STUDY DESCRIPTION: CT Abd and Pelv Wo Cont Attending Physician: Jessie Farnsworth M.D. Ordering Physician: Jessie Farnsworth M.D. Primary Care Physician: Lianna Groves [facility] IMAGING REPORT This report is preliminary unless electronic signature is present EXAM CT abdomen and pelvis without contrast. HISTORY Sepsis and leukocytosis today. Septic shock. TECHNIQUE CT abdomen and pelvis was performed without contrast. This CT exam was performed with one or more of the following radiation dose reduction techniques: automatic exposure control, adjustment of mA and/or kV according to patient size, and iterative reconstruction. FINDINGS CT ABDOMEN: There is a small amount of perihepatic ascites. Small bilateral pleural effusions. Extensive incidental calcified granulomas in the spleen. Gastrostomy tube extends into the stomach. Cholecystectomy. No bowel dilatation. Moderate amount of stool throughout the colon. The pancreas, kidneys, and adrenal glands are normal. Normal caliber abdominal aorta. Normal appendix. CT PELVIS: No free fluid. The uterus is atrophic. Bennett catheter in the bladder. No bowel dilatation. IMPRESSION 1. Small amount of perihepatic ascites. 2. No acute findings in the remainder of the abdomen or pelvis. 3. No abscess. 4. No urinary obstruction or bowel obstruction. 5. Moderate amount of stool in nondistended left colon. 6. Normal appendix. [facility] A Service of [facility] RADIOLOGY TEXT RESULTS PATIENT: ESTELLA BROWN LOCATION: [address] : [birth year] UNIT #: [id number] AGE: [address]: Jessie Farnsworth MD SEX: F ORDER DR: Dictated by... Buddy Barker M.D. THIS IS AN ELECTRONICALLY VERIFIED REPORT Buddy Barker M.D. at 03/14/2017 10:11 PM JULIO/lyubov TD: 03/14/2017 19:20 JOB #: [id number] MEDICAL IMAGING REPORT Page 1 of 1 COPY
--- NOTE | ~2017-03-12 | CR72 ---
[facility] A Service of [facility] RADIOLOGY TEXT RESULTS PATIENT: ESTELLA BROWN LOCATION: [address] : [birth year] UNIT #: [id number] AGE: [address]: Jessie Farnsworth MD SEX: F ORDER DR: [id number] [facility] [address] [place], [place] [address] [id number] I MR#: [id number] Acc #: [id number] NAME: ESTELLA BROWN. : 1945 SEX: F STUDY DATE/TIME: 03/14/2017 03:43 UNIT: [facility] ROOM: [facility] STUDY DESCRIPTION: CR Chest Single View Portable Attending Physician: Jessie Farnsworth M.D. Ordering Physician: Jessie Farnsworth M.D. Primary Care Physician: Lianna Groves MEDICAL IMAGING REPORT This report is preliminary unless electronic signature is present EXAM Portable chest 03/14 03:43 INDICATIONS Respiratory failure. Hypothermia. Symptoms for 2 days. FINDINGS AP portable chest compared with 03/13/2017. Right IJ line tip at the right atrial level. Lung volumes remain extremely low. There is continued infiltrate or atelectasis in the right [id number]-fl-qgswb lung and at the left base. There is a small right pleural effusion, which has enlarged. No pneumothorax. Dictated by... Devon Aguirre Jr., M.D. THIS IS AN ELECTRONICALLY VERIFIED REPORT Devon Aguirre Jr., M.D. at 03/15/2017 3:15 AM SADIA/ruben TD: 03/14/2017 21:59 JOB #: [id number] MEDICAL IMAGING REPORT Page 1 of 1 COPY
--- NOTE | ~2017-03-12 | CT57 ---
[facility] A Service of [facility] RADIOLOGY TEXT RESULTS PATIENT: ESTELLA BROWN LOCATION: [address] : [birth year] UNIT #: [id number] AGE: [address]: Jessie Farnsworth MD SEX: F ORDER DR: [id number] [facility] [address] [place], [place] [address] [id number] I MR#: [id number] Acc #: [id number] NAME: ESTELLA BROWN. : 1945 SEX: F STUDY DATE/TIME: 03/13/2017 21:40 UNIT: [facility] ROOM: [facility] STUDY DESCRIPTION: CT Chest Wo Cont Attending Physician: Jessie Farnsworth M.D. Ordering Physician: Jessie Farnsworth M.D. Primary Care Physician: Lianna BOOKER IMAGING REPORT This report is preliminary unless electronic signature is present EXAM CT chest. INDICATION Pneumonia. Shortness of air for 1 week. Leukocytosis and sepsis. TECHNIQUE CT of the chest without contrast. Coronal and sagittal reconstructions were obtained. This CT exam was performed with one or more of the following radiation dose reduction techniques: automatic exposure control, adjustment of mA and/or kV according to patient size, and iterative reconstruction. COMPARISON Chest radiograph 03/13/2017 and 06/21/2017. FINDINGS There is a moderate right and moderate left pleural effusion. The effusions result in atelectasis in the dependent portions of both lungs. Correlate for any evidence of a superimposed pneumonia. The central airways are patent. No pathologically enlarged mediastinal or hilar lymph nodes. The thoracic aorta is normal in caliber. No pericardial effusion. Please refer to details of the upper abdomen from the recent CT abdomen and pelvis. No acute osseous abnormalities. IMPRESSION Moderate bilateral pleural effusions, right greater than left. This results in atelectasis in the dependent portions of both lungs. Please correlate with any evidence for a superimposed pneumonia. [facility] A Service [facility] RADIOLOGY TEXT RESULTS PATIENT: ESTELLA BROWN LOCATION: [address] : [birth year] UNIT #: [id number] AGE: [address]: Jessie Farnsworth MD SEX: F ORDER DR: Dictated by... David Joyner M.D. THIS IS AN ELECTRONICALLY VERIFIED REPORT David Joyner M.D. at 03/14/2017 7:52 PM RPC/lyubov TD: 03/14/2017 19:18 JOB #: [id number] MEDICAL IMAGING REPORT Page 1 of 1 COPY
--- NOTE | ~2017-03-12 | CO ---
Unit #: [id number] #: [id number] Patient: ESTELLA BROWN [id number] [address] [place], [place] [address] [id number] I MR#: [id number] NAME: ESTELLA BROWN ROOM: [facility] Age: 71 Sex: F Admission Date: 03/12/2017 : 1945 Attending Physician: Jessie Farnsworth M.D. Primary Care Physician: Lianna Groves Consultation Date: 03/12/2017 CONSULTATION REPORT REASON FOR CONSULTATION ICU management. HISTORY OF PRESENT ILLNESS This is a very unfortunate 71-year-old female with a past medical history significant for mental retardation, seizure disorder and dysphagia. The patient is a resident at [facility]. The patient presented to the emergency room with agonal breathing and respiratory distress. Unfortunately there is no family at bedside. Her sister lives in [place], whom I called and discussed case with. Apparently the patient has had multiple recent admission due to respiratory problems and she was noted yesterday by the [facility] staff to be having trouble with her oxygen saturations and she was in respiratory distress. Upon presentation to our emergency room the patient was found to be severely hypotensive and hypoxic. Again, she was agonal internal breathing. I emergently placed a central line and discussed the case with her sister on the phone. The patient is currently DNI/DNR, but the sister wishes to continue current management until it is definite that she is dying. I tried to explain to the sister that her condition is very critical and is eminent. PAST MEDICAL HISTORY 1. Mental retardation. 2. Seizure disorder. 3. Dysphagia. PAST SURGICAL HISTORY PEG tube. SOCIAL HISTORY The patient is mentally retarded. She is living at [facility]. No history of alcohol, drug abuse or smoking. FAMILY HISTORY Not known. ALLERGIES No known drug allergies. Unit #: [id number] #: [id number] Patient: ESTELLA BROWN REVIEW OF SYSTEMS Unable to obtain due to the patient's condition. PHYSICAL EXAMINATION GENERAL: The patient is agonal and actively dying. VITALS: Blood pressure is 76/53, respiratory rate 12, O2 saturations 92%. HEENT: Atraumatic, normocephalic. Extraocular muscles intact. NECK: Supple. No jugular venous distension. No lymphadenopathy. Diminished breath sounds bilaterally. HEART: S1 and S2. No murmur, gallop or rub. ABDOMEN: Soft and nontender. Bowel sounds positive. No hepatosplenomegaly. EXTREMITIES: No edema or cyanosis. SKIN: No rashes. NEUROLOGIC: KAIAKO KOHANGA REO, the patient is lethargic. She is not following commands. She is not withdrawing to painful stimuli. DIAGNOSTIC STUDIES IMAGING: Chest x-ray is consistent with aspiration pneumonia. LABORATORY: White blood cell count 12, hemoglobin 13.2, sodium 136, creatinine 0.5. ASSESSMENT 1. Acute hypoxic respiratory failure. 2. Septic shock. 3. Aspiration pneumonia. 4. Seizure disorder. 5. Mental retardation. 6. Dysphagia. 7. Malnutrition. PLAN 1. The patient is critical with eminent . Will try BiPAP, but again I discussed with the sister her prognosis and I suggested comfort care. At this time the sister is not ready yet and she needs more time to think about it. 2. IV antibiotics, pending culture. 3. IV fluids per sepsis guidelines. 4. Bronchodilator and mucolytics. 5. DVT prophylaxis. Dictated by... Elyssa Granger TD: 03/12/2017 14:31 JOB #: [id number] Unit #: [id number] #: [id number] Patient: ESTELLA BROWN CONSULTATION REPORT Page 1 of 1 X DREW CORONA MD CONSULTATION REPORT
--- NOTE | ~2017-03-12 | OR ---
Unit #: [id number] #: [id number] Patient: ESTELLA BROWN [id number] [address] [address] [id number] I MR#: [id number] NAME: ESTELLA BROWN ROOM: [facility] Date of Procedure: 03/12/2017 Admission Date: 03/12/2017 Surgeon: Drew Payton M.D. : 1945 Attending Physician: Jessie Farnsworth M.D. Primary Care Physician: Lianna Groves PROCEDURE OPERATIVE NOTE PREOPERATIVE DIAGNOSIS Septic shock. POSTOPERATIVE DIAGNOSIS Septic shock. PROCEDURE PERFORMED Right intrajugular venous catheter placement with ultrasound guidance. INDICATION FOR PROCEDURE Septic shock. COMPLICATIONS None. BLOOD LOSS Less than 5 mL. DESCRIPTION OF PROCEDURE An informed consent was obtained from the patient's sister after explaining the benefit and risk of this procedure. Patient was prepped and positioned in a proper way. Then with chlorhexidine, her right neck was cleaned and then a sterile body drape was applied. Then with the ultrasound guidance a needle was inserted in the right IJ until blood flow was obtained. Then a guidewire was inserted and the needle was removed. Then the catheter was inserted over the guidewire after creating a tract via dilator. The guidewire was removed (1) and the catheter was flushed and sutured appropriately. Biopatch and clean dressing were applied. The patient tolerated her procedure well with no immediate complications. STAT chest x-ray is pending at the time of dictation. Dictated by... Drew Payton M.D. EA/nae TD: 03/12/2017 17:15 JOB #: [id number] Unit #: [id number] #: [id number] Patient: ESTELLA BROWN PROCEDURE OPERATIVE NOTE Page 1 of 1 X DREW CORONA MD X PROCEDURE OPERATIVE NOTE
--- NOTE | ~2017-03-12 | DS ---
Unit #: [id number] #: [id number] Patient: LADY BROWN [id number] [address] [address] [id number] I MR#: [id number] NAME: LADY BROWN. ROOM: [facility] Age: 71 Sex: F Admission Date: 03/12/2017 : 1945 Discharge Date: 03/17/2017 Attending Physician: Jessie Farnsworth M.D. Primary Care Physician: Lianna Groves DISCHARGE SUMMARY SUMMARY FINAL DIAGNOSES 1. Septic shock. 2. Acute hypoxic respiratory failure. 3. Healthcare-acquired pneumonia. 4. Aspiration pneumonia. 5. Chronic aspiration. 6. Dysphagia, status post PEG. 7. Seizure disorder. 8. History of mental retardation/[facility] resident. HOSPITAL COURSE Ms. Lady Brown was a 71-year-old female who was a resident of [facility] facility was admitted to the hospital with decreased saturation and respiratory distress. The patient was admitted to ICU in [facility]. The patient was intubated. IV antibiotics, IV fluids, bronchodilators and mucolytics were started. Dr. Payton was consulted. Patient's poor prognosis was told to patient's family at length. Patient's family decided for DNR status and comfort care. Patient on 03/17/17 at 10:24. Patient's family was very much aware of patient's poor prognosis. I have personally discussed the case with Dr. Ayala, the patient's primary care provider. Dictated by... Elyssa Fishman/ryan TD: 03/24/2017 13:10 JOB #: [id number] Unit #: [id number] #: [id number] Patient: LADY BROWN DISCHARGE SUMMARY Page 1 of 1 X Jessie Farnsworth MD X DISCHARGE SUMMARY
--- NOTE | ~2017-03-12 | EKG ---
PATIENT: ESTELLA BROWN UNIT #: [id number] Ventricular Rate: 69 BPM Atrial Rate: 69 BPM P-R Interval: 180 ms QRS Duration: 74 ms Q-T Interval: 392 ms QTC Calculation(Bezet): 420 ms P [place]: 54 degrees Calculated R [place]: 62 degrees Calculated T [place]: 65 degrees Diagnosis Line: Normal sinus rhythm Diagnosis Line: ST elevation, consider early repolarization, Diagnosis Line: pericarditis, or injury Diagnosis Line: Abnormal ECG Diagnosis Line: When compared with ECG of 11-MAR-2017 11:42, Diagnosis Line: No significant change was found Diagnosis Line: Confirmed by ESTELLE ELMORE MD ([id number]) on 03/14/2017 Diagnosis Line: 2:44:01 PM INTERPRETING MD: CATARNIA MURILLO
[~2017-03-12 03:30] MED LIST changes: +ARTIFICIAL TEAR15 M9 OU; +DANTRIUM25 MG FT; +FLONASE SENSIM9.9 ML; +HEARTBURN150 MG GT; +METOPROLOL TAR25 MG GT; +RISA-BID CAPLE1 EAC1 GT; +SALINE NOSE SPR45 M1
[2017-03-12 04:41] LABS: BASOPHIL% 0.1 % (0-2.5); EOSINOPHIL% 0.1 % (0.0-7.0); HEMATOCRIT 39.3 % (35.0-45.0); LYMPHOCYTE# 0.4 X10e3 (1.0-3.5); LYMPHOCYTE% 3.8 % (17.0-45.0); MEAN CELL VOLUME 97.8 FL (83-96); MEAN CORPUSCULAR HEMOGLOBIN 32.3 PG (28-34); MEAN PLATELET VOLUME 7.5 FL (6.5-11.5); MONOCYTE# 0.5 X10e3 (0-1.0); MONOCYTE% 4.6 % (3.0-12.0); NEUTROPHIL# 10.7 X10e3 (1.5-7.1); NEUTROPHIL% 91.4 % (40-75); PLATELET COUNT 232 X10e3 (140-420); RED BLOOD COUNT 4.02 X10e (3.90-5.30); RED CELL DISTRIBUTION WIDTH 13.1 % (11.0-15.5)
[2017-03-12 04:43] LABS: DIFF IND NO; WHITE BLOOD COUNT 11.6 X10e3 (4.0-10.5)
[2017-03-12 04:47] LABS: POC - CKMB 2.2 ng/mL (0.0-7.9); POC - TROPONIN <0.05 ng/mL (<=0.05)
[2017-03-12 05:02] LABS: ALBUMIN SERUM 3.7 g/dL (3.5-5.0); BILIRUBIN, DIRECT 0.1 mg/dL (0.0-0.2); BILIRUBIN,INDIRECT 0.3 mg/dL (0.0-0.9); BILIRUBIN,TOTAL 0.4 mg/dL (0.2-2.0); CALCIUM SERUM 10.3 mg/dL (8.4-10.2); CREATININE SERUM 0.5 mg/dL (0.6-1.4); GLOM FILT RATE Estimated 98.1 mL/min (>60); POTASSIUM 3.2 mmol/L (3.5-5.1); PROTEIN TOTAL SERUM 6.2 g/dL (6.0-8.3)
[2017-03-12] MEDS ORDERED: DELTASONE20 MG GT (13:26)
[2017-03-12] MEDS ORDERED: DULCOLAX10 MG PR (13:30)
[2017-03-12] MEDS ORDERED: DIASTAT2.5 MG PR (13:50)
[2017-03-12] MEDS ORDERED: EUCERIN CREME454 GM TOP (13:53)
[2017-03-12 18:21] LABS: URINE SOURCE CATH
[2017-03-12 18:29] LABS: URINE APPEARANCE CLEAR; URINE BILIRUBIN NEG (NEG); URINE BLOOD NEG (NEG); URINE COLOR YELLOW; URINE GLUCOSE NEG (NEG); URINE KETONE NEG (NEG); URINE LEUKOCYTE ESTERASE TRACE (NEG); URINE NITRATE NEG (NEG); URINE PH 5.5 (5-8); URINE PROTEIN TRACE (NEG); URINE SPECIFIC GRAVITY 1.017 (1.003-1.035); URINE UROBILINOGEN 0.2 MG/DL (NEG)
[2017-03-12 18:31] LABS: URINE BACTERIA AUWI NEG (NEGATIVE); URINE SQUAMOUS EPITHELIAL CELL OCC /[HPF]
[2017-03-13 03:52] LABS: ARTERIAL BLD GAS O2 SATURATION 99.7 % (90.0-100.0); ARTERIAL BLOOD GAS CARBOXY HB 0.6 %sat (0.0-9.0); ARTERIAL BLOOD GAS HCO3 27.2 mmol/L; ARTERIAL BLOOD GAS pH 7.273 (7.350-7.450)
[2017-03-13 03:53] LABS: ARTERIAL BLOOD GAS ALLEN TEST NORMAL; ARTERIAL BLOOD GAS ART SITE LEFT RADIAL; ARTERIAL BLOOD GAS DELIVERY BIPAP; ARTERIAL BLOOD GAS PCO2 58.8 mmHg (35.0-45.0); ARTERIAL BLOOD GAS VENT MODE AVAPS EPAP 6; ARTERIAL DRAW? YES
[2017-03-13 04:57] LABS: BASOPHIL% 0.1 % (0-2.5); EOSINOPHIL% 0.3 % (0.0-7.0); HEMATOCRIT 34.9 % (35.0-45.0); HEMOGLOBIN 11.8 gm/dL (12.0-16.0); LYMPHOCYTE# 0.9 X10e3 (1.0-3.5); LYMPHOCYTE% 9.6 % (17.0-45.0); MEAN CORPUSCULAR HEMOGLOBIN 32.7 PG (28-34); MEAN CORPUSCULAR HGB CONC 33.7 g/dL (30-36); MEAN PLATELET VOLUME 7.4 FL (6.5-11.5); MONOCYTE# 0.7 X10e3 (0-1.0); MONOCYTE% 6.9 % (3.0-12.0); NEUTROPHIL# 8.1 X10e3 (1.5-7.1); NEUTROPHIL% 83.1 % (40-75); PLATELET COUNT 203 X10e3 (140-420); RED CELL DISTRIBUTION WIDTH 13.2 % (11.0-15.5); WHITE BLOOD COUNT 9.8 X10e3 (4.0-10.5)
[2017-03-13 05:00] LABS: DIFF IND NO
[2017-03-13 06:20] LABS: ALBUMIN SERUM 2.8 g/dL (3.5-5.0); BILIRUBIN,TOTAL 0.2 mg/dL (0.2-2.0); CALCIUM SERUM 8.4 mg/dL (8.4-10.2); CREATININE SERUM 0.4 mg/dL (0.6-1.4); GLOM FILT RATE Estimated 105.6 mL/min (>60)
[2017-03-13 09:06] LABS: ARTERIAL BLD GAS O2 SATURATION 98.2 % (90.0-100.0); ARTERIAL BLOOD GAS CARBOXY HB 0.6 %sat (0.0-9.0); ARTERIAL BLOOD GAS HCO3 27.1 mmol/L; ARTERIAL BLOOD GAS MET HB 0.7 %sat (0.0-2.0); ARTERIAL BLOOD GAS pH 7.314 (7.350-7.450)
[2017-03-13 09:07] LABS: ARTERIAL BLOOD GAS ALLEN TEST NORMAL; ARTERIAL BLOOD GAS ART SITE RIGHT RADIAL; ARTERIAL BLOOD GAS DELIVERY AVAPS; ARTERIAL BLOOD GAS PCO2 53.4 mmHg (35.0-45.0); ARTERIAL DRAW? YES
[2017-03-13 15:45] LABS: ARTERIAL BLD GAS O2 SATURATION 96.5 % (90.0-100.0); ARTERIAL BLOOD GAS CARBOXY HB 0.6 %sat (0.0-9.0); ARTERIAL BLOOD GAS HCO3 27.4 mmol/L; ARTERIAL BLOOD GAS MET HB 0.7 %sat (0.0-2.0); ARTERIAL BLOOD GAS PO2 87.4 mmHg (80.0-100); ARTERIAL BLOOD GAS pH 7.259 (7.350-7.450)
[2017-03-13 15:46] LABS: ARTERIAL BLOOD GAS ALLEN TEST NORMAL; ARTERIAL BLOOD GAS ART SITE RIGHT BRACHIAL; ARTERIAL BLOOD GAS DELIVERY NASAL CANNULA; ARTERIAL BLOOD GAS PCO2 61.2 mmHg (35.0-45.0); ARTERIAL DRAW? YES
[2017-03-14 03:38] LABS: ARTERIAL BLD GAS O2 SATURATION 97.6 % (90.0-100.0); ARTERIAL BLOOD GAS CARBOXY HB 0.6 %sat (0.0-9.0); ARTERIAL BLOOD GAS HCO3 26.2 mmol/L; ARTERIAL BLOOD GAS MET HB 1.3 %sat (0.0-2.0); ARTERIAL BLOOD GAS pH 7.296 (7.350-7.450)
[2017-03-14 03:39] LABS: ARTERIAL BLOOD GAS ALLEN TEST NORMAL; ARTERIAL BLOOD GAS ART SITE RIGHT RADIAL; ARTERIAL BLOOD GAS PCO2 53.8 mmHg (35.0-45.0); ARTERIAL DRAW? YES
[2017-03-14 03:49] LABS: BASOPHIL% 0.2 % (0-2.5); EOSINOPHIL# 0.1 X10e3 (0-0.7); HEMATOCRIT 31.6 % (35.0-45.0); HEMOGLOBIN 10.6 gm/dL (12.0-16.0); LYMPHOCYTE# 1.1 X10e3 (1.0-3.5); LYMPHOCYTE% 15.9 % (17.0-45.0); MEAN CELL VOLUME 97.7 FL (83-96); MEAN CORPUSCULAR HEMOGLOBIN 32.6 PG (28-34); MEAN CORPUSCULAR HGB CONC 33.4 g/dL (30-36); MEAN PLATELET VOLUME 7.9 FL (6.5-11.5); MONOCYTE# 0.6 X10e3 (0-1.0); MONOCYTE% 8.6 % (3.0-12.0); NEUTROPHIL# 5.2 X10e3 (1.5-7.1); NEUTROPHIL% 74.3 % (40-75); PLATELET COUNT 138 X10e3 (140-420); RED BLOOD COUNT 3.23 X10e (3.90-5.30); RED CELL DISTRIBUTION WIDTH 12.9 % (11.0-15.5)
[2017-03-14 03:53] LABS: DIFF IND NO
[2017-03-14 04:31] LABS: ALBUMIN SERUM 2.8 g/dL (3.5-5.0); BILIRUBIN,TOTAL 0.5 mg/dL (0.2-2.0); BUN/CREATININE RATIO 17.5; CREATININE SERUM 0.4 mg/dL (0.6-1.4); GLOM FILT RATE Estimated 105.6 mL/min (>60); MAGNESIUM 2.5 mg/dL (1.6-3.0); POTASSIUM 3.1 mmol/L (3.5-5.1)
[2017-03-15 03:40] LABS: ARTERIAL BLD GAS O2 SATURATION 97.7 % (90.0-100.0); ARTERIAL BLOOD GAS CARBOXY HB 0.4 %sat (0.0-9.0); ARTERIAL BLOOD GAS HCO3 23.5 mmol/L; ARTERIAL BLOOD GAS MET HB 0.7 %sat (0.0-2.0); ARTERIAL BLOOD GAS PCO2 43.3 mmHg (35.0-45.0); ARTERIAL BLOOD GAS pH 7.343 (7.350-7.450)
[2017-03-15 03:41] LABS: ARTERIAL BLOOD GAS ALLEN TEST NORMAL; ARTERIAL BLOOD GAS ART SITE RIGHT RADIAL; ARTERIAL DRAW? YES
[2017-03-15 05:52] LABS: BASOPHIL% 0.3 % (0-2.5); EOSINOPHIL# 0.1 X10e3 (0-0.7); EOSINOPHIL% 1.4 % (0.0-7.0); HEMATOCRIT 30.7 % (35.0-45.0); HEMOGLOBIN 10.2 gm/dL (12.0-16.0); LYMPHOCYTE# 0.7 X10e3 (1.0-3.5); LYMPHOCYTE% 10.5 % (17.0-45.0); MEAN CELL VOLUME 97.5 FL (83-96); MEAN CORPUSCULAR HEMOGLOBIN 32.3 PG (28-34); MEAN CORPUSCULAR HGB CONC 33.1 g/dL (30-36); MEAN PLATELET VOLUME 7.6 FL (6.5-11.5); MONOCYTE# 0.4 X10e3 (0-1.0); NEUTROPHIL# 5.2 X10e3 (1.5-7.1); NEUTROPHIL% 81.8 % (40-75); PLATELET COUNT 130 X10e3 (140-420); RED BLOOD COUNT 3.14 X10e (3.90-5.30); RED CELL DISTRIBUTION WIDTH 13.4 % (11.0-15.5); WHITE BLOOD COUNT 6.4 X10e3 (4.0-10.5)
[2017-03-15 05:55] LABS: DIFF IND NO
[2017-03-15 06:27] LABS: ALBUMIN SERUM 2.8 g/dL (3.5-5.0); BILIRUBIN,TOTAL 0.5 mg/dL (0.2-2.0); CREATININE SERUM 0.5 mg/dL (0.6-1.4); GLOM FILT RATE Estimated 98.1 mL/min (>60); MAGNESIUM 2.8 mg/dL (1.6-3.0); POTASSIUM 4.4 mmol/L (3.5-5.1); PROTEIN TOTAL SERUM 4.9 g/dL (6.0-8.3)
[2017-03-15 12:59] LABS: BODY FLUID APPEARANCE HAZY; BODY FLUID SOURCE THORACENTESIS
[2017-03-15 13:00] LABS: BF TOTAL NUCLEATED CELL COUNT 144 CMM (0-100); BODY FLUID RBC <10000 CMM
[2017-03-15 13:04] LABS: PROTEIN, BODY FLUID <3.0 gm/dL
[2017-03-16 03:32] LABS: BASOPHIL% 0.3 % (0-2.5); EOSINOPHIL# 0.1 X10e3 (0-0.7); HEMATOCRIT 31.8 % (35.0-45.0); HEMOGLOBIN 10.6 gm/dL (12.0-16.0); LYMPHOCYTE# 0.5 X10e3 (1.0-3.5); LYMPHOCYTE% 5.8 % (17.0-45.0); MEAN CELL VOLUME 97.6 FL (83-96); MEAN CORPUSCULAR HEMOGLOBIN 32.5 PG (28-34); MEAN CORPUSCULAR HGB CONC 33.3 g/dL (30-36); MONOCYTE# 0.5 X10e3 (0-1.0); MONOCYTE% 5.5 % (3.0-12.0); NEUTROPHIL# 8.2 X10e3 (1.5-7.1); NEUTROPHIL% 87.4 % (40-75); PLATELET COUNT 138 X10e3 (140-420); RED BLOOD COUNT 3.25 X10e (3.90-5.30); RED CELL DISTRIBUTION WIDTH 13.7 % (11.0-15.5); WHITE BLOOD COUNT 9.3 X10e3 (4.0-10.5)
[2017-03-16 03:36] LABS: DIFF IND NO
[2017-03-16 04:03] LABS: BUN/CREATININE RATIO 12.5; CALCIUM SERUM 7.9 mg/dL (8.4-10.2); CREATININE SERUM 0.4 mg/dL (0.6-1.4); GLOM FILT RATE Estimated 105.6 mL/min (>60); MAGNESIUM 2.8 mg/dL (1.6-3.0); POTASSIUM 3.5 mmol/L (3.5-5.1)
[2017-03-16 15:38] LABS: HEPARIN INDUCED PLT AB Negative (Negative); UFH HIGH DOSE 100 0 (()); UFH LOW DOSE 0.1 0 (()); UFH LOW DOSE 0.5 0 (())
[2017-03-17 05:26] LABS: MAGNESIUM 2.8 mg/dL (1.6-3.0); POTASSIUM 3.8 mmol/L (3.5-5.1)
== END 2017-03-17 10:24 | disposition expired | DRG 871 ==
LOC: CED 03:30 → CEDOF 05:50 → CED 05:59 → CEDOF 05:59 → CICCU2 07:48 → CEDOF 07:48 → CICCU3 03-15 17:39
PROVIDERS: Emergency Medicine; Internal Medicine; Internal Medicine Pulmonary Disease; Physician Assistant Medical
PROC: 05HM33Z Insertion of Infusion Device into Right Internal Jugular Vein, Percutaneous Approach (ICD-10-PCS; 2017-03-12)
PROC: B543ZZA Ultrasonography of Right Jugular Veins, Guidance (ICD-10-PCS; 2017-03-12)
PROC: B24BYZZ Ultrasonography of Heart with Aorta using Other Contrast (ICD-10-PCS; 2017-03-12)
PROC: 0W9930Z Drainage of Right Pleural Cavity with Drainage Device, Percutaneous Approach (ICD-10-PCS; principal; 2017-03-15)
DX: A41.9 Sepsis, unspecified organism (principal); R65.21 Severe sepsis with septic shock; J96.01 Acute respiratory failure with hypoxia; J96.02 Acute respiratory failure with hypercapnia; J69.0 Pneumonitis due to inhalation of food and vomit; E46 Unspecified protein-calorie malnutrition; J90 Pleural effusion, not elsewhere classified; R53.2 Functional quadriplegia; E87.0 Hyperosmolality and hypernatremia; G40.909 Epilepsy, unspecified, not intractable, without status epilepticus; R13.10 Dysphagia, unspecified; Z66 Do not resuscitate; F79 Unspecified intellectual disabilities; E87.6 Hypokalemia; D69.6 Thrombocytopenia, unspecified
CPT/HCPCS: 36600; 71010; 71250; 74176; 80048; 80053; 80076; 80200; 81003; 82042; 82308; 82553; 82803; 82947; 83605; 83615; 83735; 83880; 84132; 84157; 84484; 85025; 86022; 87040; 87070; 87205; 88108; 88305; 89051; 93005; 93306; 94660; 94760; 96360; 96361; 99285; C9113; J1650; J2060; J2270; J2543; J3260; J3370; J3475